=== PATIENT | male | born 1970 | race Caucasian/White ===

== ENCOUNTER → 2024-01-18 09:15 | Outpatient (REF) | payer BC, SELFPAY | LOC: DHSLP 09:15 | PROVIDERS: ATTENDING PHYSICIAN Internal Medicine Critical Care Medicine; FAMILY PHYSICIAN Otolaryngology | DX: G47.33 Obstructive sleep apnea (adult) (pediatric) (principal); G47.61 Periodic limb movement disorder | CPT/HCPCS: 95810 ==